=== PATIENT | male | born 1960 | race Caucasian/White ===

== ENCOUNTER 2022-01-21 16:44 | Emergency (ER) | payer OTHER ==
[2022-01-21 16:53] VITALS: TEMP 98.6; BMI 32.1
[2022-01-21] MEDS ORDERED: LIDOCAINE 5% TOPICAL PATCH TP ONE (18:35)
[2022-01-21] MEDS ORDERED: ACETAMINOPHEN 500 MG TABLET (FP) PO ONE (18:35)
[2022-01-21] MEDS ORDERED: LIDOCAINE 5% TOPICAL PATCH ONE (18:48)
[2022-01-21] MEDS ORDERED: ACETAMINOPHEN 500 MG TABLET (FP) ONE (18:48)
[2022-01-21 20:55] LABS: BASO % 0.7 % (0-2.0); EOS % 1.4 % (0-4.5); HEMATOCRIT 43.6 % (35.4-49); HEMOGLOBIN 14.7 GM/dL (11.7-16.9); MCH 28.1 pg (25.7-33.7); MCHC 33.7 g/dl (32.0-35.9); MEAN CELL VOLUME 83.1 fl (80-96); MEAN PLT VOLUME 8.7 fl (7.5-11.1); NEUT % 72.9 % (42.8-82.8); PLATELET COUNT 273 10^3/uL (134-434); RBC 5.25 M/mm3 (4.00-5.60); RDW 14.6 % (11.9-15.9); WHITE BLOOD COUNT 9.7 K/mm3 (4.0-10.0)
[2022-01-21 21:13] LABS: ALBUMIN 4.2 g/dl (3.4-5.0); BLOOD UREA NITROGEN 11.4 mg/dL (7-18)
[2022-01-21 21:14] LABS: MAGNESIUM 2.2 mg/dL (1.8-2.4)
[2022-01-21 21:16] LABS: CREATININE 0.9 mg/dL (0.55-1.3)
[2022-01-21 21:18] LABS: BILIRUBIN,TOTAL 0.6 mg/dL (0.2-1); TOT PROT 8.1 g/dl (6.4-8.2)
[2022-01-21 21:19] LABS: N-TERMINAL BNP 98.1 pg/ml (5-125)
[2022-01-21] MEDS ORDERED: LIDOCAINE PATCH REMOVAL MC SCH (22:00)
[2022-01-21 22:01] LABS: INR 1.03 (0.83-1.09); PROTHROMBIN TIME (PATIENT) 11.8 SEC (9.7-13.0)
[2022-01-21 22:04] LABS: ACTIVATED PTT 30.4 SECONDS (25.2-36.5)
[2022-01-21] MEDS ORDERED: LABETALOL HCL 200 MG TABLET (FP) PO ONE (23:29)
[2022-01-21] MEDS ORDERED: LABETALOL HCL 100 MG TABLET (FP) ONE (23:46)
[2022-01-22 01:02] VITALS: BP 145/84; PULSE 84; RESP 16
== END 2022-01-22 01:44 | disposition home or self-care (01) ==
LOC: JER 16:44
DX: M54.2 Cervicalgia (principal)
CPT/HCPCS: 36415; 70450-TC; 70498-TC; 71046-TC-FY; 80053; 83735; 83880; 84484; 85025; 85610; 85730; 93005; 93010; 99285-25; Q9967